=== PATIENT | male | born 1990 | race Caucasian/White ===

== ENCOUNTER 2022-02-10 22:41 | Emergency (ER) | payer MEDICAID, OTHER ==
[~2022-02-10] VITALS: Ht 182.9 cm; Wt 165.0 kg
[2022-02-10] MEDS ORDERED: ACETAMINOPHEN 500 MG TAB PO ONE (23:45)
[2022-02-10] MEDS ORDERED: IBUPROFEN 600 MG TAB PO ONE (23:45)
[2022-02-11 00:11] VITALS: BP 115/84
[2022-02-11] MEDS ORDERED: DEXT1SYP9 PO ×2 (01:05→01:07)
[2022-02-11] MEDS ORDERED: AZITTAB PO ×2 (01:05→01:07)
[2022-02-11] MEDS ORDERED: ALBU108A5 IN (01:46)
== END 2022-02-11 03:41 | disposition home or self-care (01) ==
LOC: ER 22:43
DX: J06.9 Acute upper respiratory infection, unspecified (principal); Z20.822 Contact with and (suspected) exposure to COVID-19
CPT/HCPCS: 36415; 71046; 87426; 87804

== ENCOUNTER 2022-11-13 01:47 | Inpatient (IN) | payer MEDICAID ==
[~2022-11-13] VITALS: Ht 180.3 cm; Wt 69.3 kg
[~2022-11-13 01:47] MED LIST: ALBU108A5 IN; AZITTAB PO; DEXT1SYP9 PO
[2022-11-13] MEDS ORDERED: HYDROcodone-ACET 5/325MG TAB PO ONE (08:00)
[2022-11-13] MEDS ORDERED: SODIUM CHLORIDE 0.9% 1,000 ML IV ONE (08:30)
[2022-11-13 09:50] LABS: Basophils # (auto) 0 10 ^3/uL (0-0.2); Basophils % (auto) 0.2 % (0.0-2.0); Eosinophils # (auto) 0 10 ^3/uL (0-0.8); Hematocrit 37.7 % (41.0-53.0); Hemoglobin 12.2 g/dL (13.5-17.5); Lymphocytes # (auto) 2.3 10 ^3/uL (0.4-5.4); Lymphocytes % (auto) 15.3 % (10.0-50.0); Mean Corpuscular Hemoglobin 29.2 pg (28.0-32.0); Mean Corpuscular Hgb Conc. 32.4 g/dL (32.0-36.0); Mean Corpuscular Volume 90.1 fL (80.0-100.0); Monocytes # (auto) 2.2 10 ^3/uL (0-1.3); Monocytes % (auto) 14.4 % (0.0-12.0); Neutrophils # (auto) 10.4 10 ^3/uL (1.6-8.6); Neutrophils % (auto) 70.1 % (37.0-80.0); Nucleated Red Blood Cells % 0.1 %; Red Blood Cells 4.18 10^6/uL (4.5-5.90); Red Cell Distribution Width 15.6 % (11.8-14.3); White Blood Cell 14.9 10^3/uL (4.4-10.8)
[2022-11-13 10:14] LABS: Chloride 108 mmol/L (98-107); Sodium 142 mmol/L (136-145)
[2022-11-13 10:15] LABS: Anion Gap 10.2 (5-15); Carbon Dioxide 23.8 mmol/L (20-30)
[2022-11-13 10:16] LABS: Calcium 7.9 mg/dL (8.5-10.1)
[2022-11-13 10:20] LABS: BUN/Creatinine Ratio 6.7 (10.0-20.0); Blood Urea Nitrogen 5 mg/dL (9-23); Glucose 121 mg/dL (74-106)
[2022-11-13] MEDS ORDERED: DOCUSATE SOD 100 MG CAP PO PRN (10:30)
[2022-11-13] MEDS ORDERED: ONDANSETRON HCL 4 MG/2 ML VIAL IV PRN (10:30)
[2022-11-13] MEDS: ENOXAPARIN SOD 40 MG/0.4 ML SYRINGE SC SCH (13:29)
[2022-11-13 15:15] VITALS: PULSE 92; RESP 15; O2SAT 99
[2022-11-13] MEDS: SODIUM CHLORIDE 0.9% 1,000 ML IV SCH ×2 (15:37→19:24)
[2022-11-13] MEDS: HYDROcodone-ACET 5/325MG TAB PO PRN ×2 (15:40→20:42)
[2022-11-13] MEDS ORDERED: POTASSIUM CHL 20 Meq TABLET PO ONE (15:45)
[2022-11-13] MEDS ORDERED: CALCIUM GLUC 1,000mg/50ml-NS 50 ML IV ONE (19:30)
[2022-11-13] MEDS ORDERED: MAGNESIUM SULFATE 1GM/100ML 100 ML IV ONE (20:00)
[2022-11-13 21:03] LABS: Urine Bacteria NONE SEEN /hpf (None Seen); Urine Blood Negative /uL (Negative); Urine Clarity Clear (Clear); Urine Color Yellow (Yellow); Urine Mucus FEW (None Seen); Urine Protein, UAD TRACE (Negative); Urine Specific Gravity 1.018 (1.001-1.035); Urine Urobilinogen Normal (Negative); Urine WBC <1 /hpf (0 - 3); Urine pH 6.5 (5.0-8.0)
[2022-11-13 21:04] LABS: Amphetamine Screen, Urine Neg (NEGATIVE); Barbiturate Scree,Urine Neg (NEGATIVE); Benzodiazephine Screen, Urine Neg (NEGATIVE); Cannabinoid Screen, Urine Neg (NEGATIVE); Cocaine Screen, Urine Neg (NEGATIVE); Opiate Scree,Urine Neg (NEGATIVE); Phencyclidine Screen, Urine Neg (NEGATIVE)
[2022-11-13] MEDS: AMOXICILLIN/CLAVUL 875 MG TAB PO SCH (21:56)
[2022-11-13 22:32] LABS: Chloride 106 mmol/L (98-107); Potassium 3.2 mmol/L (3.5-5.1); Sodium 139 mmol/L (136-145)
[2022-11-13 22:33] LABS: Anion Gap 9.3 (5-15); Calcium 8.6 mg/dL (8.5-10.1); Carbon Dioxide 23.7 mmol/L (20-30)
[2022-11-13 22:38] LABS: Glucose 102 mg/dL (74-106)
[2022-11-13 22:39] LABS: Magnesium 1.8 mg/dL (1.6-2.6)
[2022-11-13 22:43] LABS: Blood Urea Nitrogen < 5 mg/dL (9-23)
[2022-11-14] VITALS (8 sets, daily range): BP systolic 115–129; BP diastolic 73–95; PULSE 83–94; RESP 16–18; TEMP 98.7–99.8; O2SAT 95–100
[2022-11-14] MEDS ORDERED: POTASSIUM CHL 20 Meq TABLET PO ONE (01:45)
[2022-11-14] MEDS: SODIUM CHLORIDE 0.9% 1,000 ML IV SCH ×3 (03:56→19:50)
[2022-11-14] MEDS: HYDROcodone-ACET 5/325MG TAB PO PRN (06:07)
[2022-11-14 07:45] LABS: Basophils # (auto) 0 10 ^3/uL (0-0.2); Basophils % (auto) 0.2 % (0.0-2.0); Eosinophils # (auto) 0 10 ^3/uL (0-0.8); Eosinophils % (auto) 0.1 % (0.0-7.0); Hematocrit 39.8 % (41.0-53.0); Hemoglobin 13.4 g/dL (13.5-17.5); Lymphocytes # (auto) 1.5 10 ^3/uL (0.4-5.4); Lymphocytes % (auto) 13.9 % (10.0-50.0); Mean Corpuscular Hemoglobin 30.3 pg (28.0-32.0); Mean Corpuscular Hgb Conc. 33.7 g/dL (32.0-36.0); Mean Corpuscular Volume 89.9 fL (80.0-100.0); Monocytes # (auto) 1.4 10 ^3/uL (0-1.3); Monocytes % (auto) 13.4 % (0.0-12.0); Neutrophils # (auto) 7.6 10 ^3/uL (1.6-8.6); Neutrophils % (auto) 72.4 % (37.0-80.0); Red Blood Cells 4.43 10^6/uL (4.5-5.90); Red Cell Distribution Width 15.2 % (11.8-14.3); White Blood Cell 10.5 10^3/uL (4.4-10.8)
[2022-11-14 08:28] LABS: Alanine Aminotransferase 154 U/L (7-40); Alkaline Phosphatase 218 U/L (46-116); Anion Gap 9.6 (5-15); Calcium 8.9 mg/dL (8.5-10.1); Carbon Dioxide 22.4 mmol/L (20-30); Chloride 104 mmol/L (98-107); Glucose 111 mg/dL (74-106); Potassium 3.8 mmol/L (3.5-5.1); Sodium 136 mmol/L (136-145)
[2022-11-14 08:29] LABS: Aspartate Aminotransferase 219 U/L (13-40)
[2022-11-14 08:30] LABS: Bilirubin, Total 2.5 mg/dL (0.2-1.0); Total Protein 6.4 g/dL (5.7-8.2)
[2022-11-14 08:32] LABS: BUN/Creatinine Ratio 7.8 (10.0-20.0); Blood Urea Nitrogen < 5 mg/dL (9-23)
[2022-11-14] MEDS: ENOXAPARIN SOD 40 MG/0.4 ML SYRINGE SC SCH (11:27)
[2022-11-14] MEDS: AMOXICILLIN/CLAVUL 875 MG TAB PO SCH ×2 (11:40→21:45)
[2022-11-14] MEDS: MORPHINE SULFATE INJ 2 MG/ml SYRG IV PRN ×2 (11:41→16:40)
[2022-11-15] MEDS: HYDROcodone-ACET 5/325MG TAB PO PRN ×3 (02:50→15:09)
[2022-11-15] MEDS: SODIUM CHLORIDE 0.9% 1,000 ML IV SCH ×2 (04:04→13:10)
[2022-11-15 05:20] VITALS: BP 121/78; PULSE 82; RESP 18; TEMP 98.8; O2SAT 98
[2022-11-15 08:00] VITALS: PULSE 64; RESP 20; O2SAT 98
[2022-11-15 09:00] VITALS: BP 116/69; PULSE 64; RESP 20; TEMP 97.6; O2SAT 98
[2022-11-15] MEDS: ENOXAPARIN SOD 40 MG/0.4 ML SYRINGE SC SCH (10:22)
[2022-11-15] MEDS: AMOXICILLIN/CLAVUL 875 MG TAB PO SCH (10:22)
[2022-11-15] MEDS ORDERED: HYDR-4798 PO (12:06)
[2022-11-15 13:00] VITALS: BP 125/86; PULSE 87; RESP 21; TEMP 97.8; O2SAT 98
[2022-11-15 13:55] VITALS: BP 125/86; PULSE 87; RESP 21; TEMP 97.8; O2SAT 98
[2022-11-15 17:18] VITALS: BP 127/80; PULSE 83; RESP 20; TEMP 98.2; O2SAT 98
== END 2022-11-15 17:00 | disposition home or self-care (01) | DRG 341 ==
LOC: ER 01:52 → OVERFLOW 10:24 → WEST WING 11-14 04:30
PROVIDERS: ADMIT Nurse Practitioner Family; ATTEND Nurse Practitioner Family
PROC: 0CQ1XZZ Repair Lower Lip, External Approach (ICD-10-PCS; principal; 2022-11-13)
DX: S32.401A Unspecified fracture of right acetabulum, initial encounter for closed fracture (principal); F17.290 Nicotine dependence, other tobacco product, uncomplicated; S01.511A Laceration without foreign body of lip, initial encounter; S02.2XXA Fracture of nasal bones, initial encounter for closed fracture; Z83.3 Family history of diabetes mellitus; V49.9XXA Car occupant (driver) (passenger) injured in unspecified traffic accident, initial encounter; Y93.89 Activity, other specified; Y92.89 Other specified places as the place of occurrence of the external cause; Y99.8 Other external cause status
CPT/HCPCS: 12011; 36415; 70450; 70486; 74176; 80048; 80053; 80307; 81001; 83735; 85025; 96365; 96368; 97163; G0378